=== PATIENT | female | born 1935 | race Caucasian/White ===

== ENCOUNTER → 2016-07-02 | Outpatient (CLI) | payer MEDICARE, OTHER ==
--- NOTE | 2016-07-02 16:47 | RAD ---
EXAM DESCRIPTION: Wrist,Left 3 Views CLINICAL HISTORY: 81 years Female, CLOSED FX OF DISTAL END OF RADIUS COMPARISON: None. FINDINGS: 3 views of the left wrist were obtained. There is a slightly displaced distal left radial fracture with intra-articular extension. There is a non or minimally splays the ulnar styloid fracture. Carpal bones are intact. Vascular calcifications are noted. There is joint space narrowing and productive change involving multiple metacarpophalangeal joints, worse at the second MCP joint. There is subluxation of the third PIP joint, questionable acuity. Bony erosions at several locations suggest the possibility of psoriatic arthritis. IMPRESSION: Minimally displaced distal radial and ulnar styloid fractures as detailed above. Advanced polyarticular arthritis with bony erosion suggesting the possibility of psoriatic arthritis. Subluxation of the third PIP joint, probably not acute. Electronically signed by: Frank Duran MD 07/02/2016 4:46 PM CDT
== END | disposition home or self-care (01) ==
LOC: RAD 08:38
PROVIDERS: ATTEND Orthopaedic Surgery
DX: S52.502D Unspecified fracture of the lower end of left radius, subsequent encounter for closed fracture with routine healing (principal); X58.XXXA Exposure to other specified factors, initial encounter

== ENCOUNTER → 2016-07-26 | Outpatient (CLI) | payer MEDICARE, OTHER ==
--- NOTE | 2016-07-27 07:50 | RAD ---
EXAM DESCRIPTION: Wrist,Left 3 Views CLINICAL HISTORY: 81 years Female, CLOSED FX OF DISTAL END OF RADIUS COMPARISON: July 02, 2016 FINDINGS: Again seen is an impacted, slightly comminuted distal left radial fracture with intra-articular extension remains either non or partially united. There is a non or partially nonunited, nondisplaced ulnar styloid fracture, stable. Vascular calcifications are noted. Polyarticular arthritis in the left wrist and left hand appears stable. IMPRESSION: Non or partially united distal radial and ulnar styloid fractures, not significantly changed from July 02, 2016. Vascular calcifications and polyarticular arthritic changes. Electronically signed by: Frank Duran MD 07/27/2016 7:49 AM CDT Workstation: [facility]
== END | disposition home or self-care (01) ==
LOC: RAD 08:10
PROVIDERS: ATTEND Orthopaedic Surgery
DX: S52.502D Unspecified fracture of the lower end of left radius, subsequent encounter for closed fracture with routine healing (principal)

== ENCOUNTER → 2016-08-30 | Outpatient (CLI) | payer MEDICARE, OTHER ==
--- NOTE | 2016-08-31 07:33 | RAD ---
EXAM DESCRIPTION: Wrist,Left 3 Views CLINICAL HISTORY: CLOSED FX OF DISTAL END OF RADIUS COMPARISON: July 26, 2016 and jul 02 2016 IMPRESSION: 3 views of the left wrist again demonstrate a comminuted, intra-articular impacted fracture of the distal radius. There there is interval separation of the major fracture fragments compared to the prior exams. There remains dorsal angulation of the distal fracture fragments and dorsal displacement of fragments similar to previous exam. Mildly displaced ulnar styloid avulsion fracture is again seen. There does not appear to be significant periosteal reaction or bridging callus formation to suggest significant healing. Osseous structures are diffusely osteopenic. Mild separation of the scaphoid and lunate is seen. Moderate osteoarthritic changes of the first carpometacarpal joint are noted. Electronically signed by: Ankit Peoples MD 08/31/2016 7:32 AM CDT
== END ==
LOC: RAD 09:07
PROVIDERS: ATTEND Orthopaedic Surgery
DX: S52.502D Unspecified fracture of the lower end of left radius, subsequent encounter for closed fracture with routine healing (principal); M18.12 Unilateral primary osteoarthritis of first carpometacarpal joint, left hand

== ENCOUNTER → 2016-09-16 | Outpatient (CLI) | payer MEDICARE, OTHER ==
--- NOTE | 2016-09-17 16:47 | MRI ---
EXAM DESCRIPTION: Lumbar Spine w/o Contrast CLINICAL HISTORY: LOW BACK PAIN COMPARISON: July 12, 2013. Report is not available. TECHNIQUE: Multiplanar, multisequence MRI of the lumbar spine was performed without contrast. FINDINGS: GENERAL Remote compression fracture deformity of T12 is again seen with retropulsed fragment of the superior plate contributing to mild spinal canal stenosis. Disc desiccation seen throughout the more spine. Moderate to severe disc space narrowing with endplate irregularity is again seen from L3 through L5 with mild disc space narrowing at L1-2. Vacuum disc is seen at L1-2 and L3-L5. Conus medullaris terminates at T12-L1 and is unremarkable. The visualized intra-abdominal retroperitoneal structures show no acute findings. Mild curvature of the upper lumbar spine with convexity towards the left is seen. Fat signal fibrolipoma of the filum terminalis is seen in the posterior aspect of the thecal sac from L2 to the sacrum. T12-L1: Trace retrolisthesis of T12 on L1 with 4 to 5 mm broad-based disc bulge slightly more prominent than previous exam contributes to mild spinal canal stenosis. There is moderate right foraminal encroachment. L1-2 There is a 4 mm broad-based disc bulge. Moderate bilateral facet hypertrophic and degenerative changes with ligamentum flavum thickening is seen. There is mild spinal canal stenosis. The thecal sac measures 7 mm AP centrally. Moderate to severe left and moderate right foraminal encroachment is seen. L2-3 Mild diffuse disc space narrowing and 3 mm posterior circumferential ridging disc osteophyte complex. There is moderate bilateral facet hypertrophic and degenerative changes with ligamentum flavum thickening decreasing CSF signal from around the nerve roots in the thecal sac that measures 5 mm AP by 10 mm transverse. There is severe spinal canal stenosis with right lateral recess encroachment and moderate right greater than left foraminal encroachment similar to previous. L3-4 There is 5 mm anterolisthesis of L4 3 on L4 is severe bilateral facet hypertrophic and degenerative changes including ligamentum flavum thickening resulting in critical spinal canal stenosis. The thecal sac measures 3 mm AP with loss of CSF signal from around the nerve roots. Severe right greater than left foraminal encroachment is again seen. L4-5 Trace anterolisthesis of L4 on L5. Severe bilateral facet hypertrophic and degenerative changes are seen. There is critical spinal canal stenosis with loss of CSF signal from around the nerve roots in the thecal sac measuring 3 mm AP centrally. Severe left and mild right foraminal encroachment is seen. L5-S1 Mild posterior disc space narrowing and broad-based disc bulge with moderate bilateral facet hypertrophic and degenerative changes including ligamentum flavum thickening. There is moderate spinal canal stenosis with left greater than right lateral recess encroachment. Moderate to severe left foraminal encroachment is seen. IMPRESSION: Remote compression fracture deformity of T12 is again seen. No acute compression fracture deformity seen. Multilevel severe disc degenerative change and facet arthropathy from L1 through S1 is seen. There is multifactorial critical spinal canal stenosis at L3-4 and L4-5 severe spinal canal stenosis at L2-3. Multilevel moderate to severe foraminal encroachment stable from previous. Electronically signed by: Ankit Peoples MD 09/17/2016 4:45 PM CDT
== END ==
LOC: MRI 11:13
PROVIDERS: ATTEND Family Medicine
DX: M48.54XA Collapsed vertebra, not elsewhere classified, thoracic region, initial encounter for fracture (principal); M51.37 Other intervertebral disc degeneration, lumbosacral region

== ENCOUNTER 2016-10-11 05:37 | Day surgery (SDC) | payer MEDICARE, OTHER ==
[2016-10-11] MEDS: PROPARACAINE 0.5% OPHTH SOL 15 ML BTTL LEFT_EYE ONE ×3 (07:28→08:45)
[2016-10-11] MEDS: TOBRAMYCIN SULF 0.3 % OPHT SOL 1 DROP LEFT_EYE ONE ×2 (07:29→09:05)
[2016-10-11] MEDS ORDERED: TROP 1%/CYCLOPEN 1%/PHENYL 2% DROPS OPHTH ONE ×3 (07:30→07:40)
[2016-10-11] MEDS ORDERED: MIDAZOLAM INJ 5 MG/5 ML VIAL ONE (08:39)
[2016-10-11] MEDS ORDERED: LIDOCAINE 1% PF 2 ML AMP INJ ONE (08:50)
[2016-10-11] MEDS ORDERED: BRIMONIDINE 0.2% OPHTH DROPS LEFT_EYE ONE (09:05)
[2016-10-11] MEDS ORDERED: DEXAMETHASONE 0.1% OPHTH SOL 1 DROP LEFT_EYE ONE (09:05)
[2016-10-11 14:36] VITALS: O2SAT 95
[2016-10-11 15:10] VITALS: BP 192/73; TEMP 97.2
== END 2016-10-11 10:10 | disposition home or self-care (01) ==
LOC: AMB 05:37
PROVIDERS: ATTEND Ophthalmology
DX: H25.12 Age-related nuclear cataract, left eye (principal)
CPT/HCPCS: 66984; J2250

== ENCOUNTER → 2016-11-10 | Outpatient (CLI) | payer MEDICARE, OTHER | LOC: GMAB 10:45 | PROVIDERS: ATTEND Family Medicine | DX: E03.9 Hypothyroidism, unspecified (principal); I10 Essential (primary) hypertension ==

== ENCOUNTER → 2017-01-28 | Outpatient (CLI) | payer MEDICARE, OTHER ==
--- NOTE | 2017-01-29 17:52 | MRI ---
EXAM DESCRIPTION: Lumbar Spine w/o Contrast CLINICAL HISTORY: FALL INJURY COMPARISON: 09/16/2016. TECHNIQUE: Multiplanar multisequence MR imaging of the lumbar spine was performed without contrast FINDINGS: Since the prior exam, there is new moderate height loss of T11, with internal increased T2 signal consistent with acute compression fracture. There is no retropulsion of bone fragments into the spinal canal at this level.There is increased STIR signal in the anterior soft tissues and lateral paraspinal soft tissues at the T10 and T11 levels. No other significant change is seen. Extensive degenerative changes are again seen and spondylolisthesis at multiple levels is again seen. These findings appear unchanged. Degree of neural foraminal stenosis previously seen appears unchanged. For purposes of this exam, it is assumed that there are five nonrib-bearing lumbar vertebral bodies. There is no other evidence of acute fracture. The vertebral bodies are otherwise unchanged in configuration and signal. The conus medullaris and filum terminale and cauda equina appear unremarkable. IMPRESSION: New T11 compression fracture with edema of the surrounding soft tissues. Electronically signed by: Dameon Pierson 01/29/2017 5:51 PM [facility]
== END ==
LOC: MRI 11:01
PROVIDERS: ATTEND Physical Medicine & Rehabilitation
DX: S22.080A Wedge compression fracture of T11-T12 vertebra, initial encounter for closed fracture (principal); M81.0 Age-related osteoporosis without current pathological fracture

== ENCOUNTER → 2017-11-23 | Outpatient (CLI) | payer MEDICARE, OTHER | LOC: GMAE 12:02 | PROVIDERS: ATTEND Family Medicine | DX: D50.9 Iron deficiency anemia, unspecified (principal); D53.9 Nutritional anemia, unspecified; E53.8 Deficiency of other specified B group vitamins; D72.821 Monocytosis (symptomatic); E03.9 Hypothyroidism, unspecified ==

== ENCOUNTER → 2017-12-06 | Outpatient (CLI) | payer MEDICARE, OTHER | LOC: GMAE 14:37 | PROVIDERS: ATTEND Family Medicine | DX: E53.8 Deficiency of other specified B group vitamins (principal) ==

== ENCOUNTER → 2018-01-11 | Outpatient (CLI) | payer MEDICARE, OTHER | LOC: GMAE 14:14 | PROVIDERS: ATTEND Family Medicine | DX: E53.8 Deficiency of other specified B group vitamins (principal); D50.9 Iron deficiency anemia, unspecified ==

== ENCOUNTER → 2018-12-06 | Outpatient (CLI) | payer MEDICARE, OTHER | LOC: GMAE 12:36 | PROVIDERS: ATTEND Family Medicine | DX: E03.9 Hypothyroidism, unspecified (principal); I10 Essential (primary) hypertension; E78.00 Pure hypercholesterolemia, unspecified ==

== ENCOUNTER → 2019-06-06 | Outpatient (CLI) | payer MEDICARE, OTHER | LOC: GMAE 11:34 | PROVIDERS: ATTEND Family Medicine | DX: E03.9 Hypothyroidism, unspecified (principal) ==

== ENCOUNTER → 2019-12-19 | Outpatient (CLI) | payer MEDICARE, OTHER | LOC: GMAE 14:33 | PROVIDERS: ATTEND Family Medicine | DX: D51.3 Other dietary vitamin B12 deficiency anemia (principal); E03.9 Hypothyroidism, unspecified; I10 Essential (primary) hypertension; E78.00 Pure hypercholesterolemia, unspecified ==

== ENCOUNTER 2020-01-15 16:59 | Emergency (ER) | payer MEDICARE, OTHER ==
[2020-01-15 18:11] VITALS: TEMP 97.9
--- NOTE | 2020-01-15 19:49 | RAD ---
EXAM DESCRIPTION: XR Chest,1 View CLINICAL HISTORY: COVID, WEAKNESS, FATIGUED TECHNIQUE: Single frontal view of the chest is submitted. COMPARISON: 10/06/2015 FINDINGS: Heart: The cardiothoracic silhouette is accentuated by portable technique. Lungs: Patchy bilateral mid and lower lung zone opacities. Mediastinum: Thoracic aortic atherosclerosis. Moderate hiatal hernia, mildly increased in size. Pleura: No appreciable effusion. No pneumothorax. Bones: Multilevel spondylosis. Reverse shoulder arthroplasty bilaterally, new on the left. Upper abdomen: Surgical clips project over the right upper quadrant. IMPRESSION: Patchy infiltrates bilaterally. 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
--- NOTE | 2020-01-15 21:31 | ED.PDOC ---
History of Present Illness - General Chief Complaint: Respiratory Problem Stated Complaint: COVID + Time Seen by Provider: 01/15/20 19:11 Source: patient, RN/MD Exam Limitations: no limitations - History of Present Illness Initial Comments: 7 D OF "HEAD COLD". POS COVID AT OUTSIDE LAB. NO SOB. NO COUGH. JUST TIRED, WEAK, FEELS RUN DOWN. PRESENT IN ER, WHO IS BEING SEEN FOR POS COVID WELL. DR. STOKES CALLED ME AND SENT THEM OVER. HE REQUESTS W/U AND ADMISSION. Timing/Duration: constant Severity: moderate Improving Factors: nothing Worsening Factors: nothing Associated Symptoms: weakness Allergies/Adverse Reactions: Allergies NO KNOWN ALLERGY Allergy (Verified 01/15/20 18:13) Home Medications: Ambulatory Orders Furosemide [Lasix] 20 mg PO DAILY 01/11/14 Levothyroxine Sodium [Synthroid] 0.125 mg PO DAILY 01/11/14 Losartan Potassium & Hydrochlo [Losartan Potassium/Hydroc 100-12.5 mg] 1 tab PO DAILY 01/11/14 Meloxicam 7.5 mg PO DAILY 01/11/14 Ondansetron Tab [Zofran Tab] 4 mg PO BID PRN #8 tab 01/11/14 Potassium Chloride [Micro-K] 10 meq PO DAILY 01/11/14 amLODIPine BESYLATE [Norvasc] 5 mg PO DAILY 01/11/14 Bacitracin Oint Ud Packet 0.9 gm TOP TID #21 pckt 03/09/14 Lidocaine 2% Gel [Xylocaine 2% GEL] 1 applic TOP TID PRN #1 tube 03/09/14 Ondansetron Odt [Zofran ODT] 8 mg PO Q6HR PRN #20 tab 03/09/14 Review of Systems - Review of Systems Constitutional: States: weakness. Denies: chills, fever EENTM: Denies: ear pain, nose congestion, throat pain Respiratory: Denies: cough, short of breath Cardiology: Denies: chest pain, palpitations Gastrointestinal/Abdominal: States: no symptoms reported Genitourinary: States: no symptoms reported Musculoskeletal: States: no symptoms reported Skin: States: no symptoms reported Neurological: States: no symptoms reported Endocrine: States: no symptoms reported Hematologic/Lymphatic: States: no symptoms reported All other Systems: Reviewed and Negative Past Medical History (General) - Patient Medical History Hx Seizures: No Hx Stroke: No Hx Dementia: No Hx Asthma: No Hx of COPD: No Hx Cardiac Disorders: No Hx Congestive Heart Failure: No Hx Pacemaker: No Hx Hypertension: Yes Hx Thyroid Disease: Yes Hx Diabetes: No Hx Gastroesophageal Reflux: No Hx Renal Disease: No Hx Cancer: No Hx of HIV: No Hx Hepatitis C: No Hx MRSA: No Surgical History: appendectomy, cholecystectomy - Vaccination History Hx Influenza Vaccination: Yes Hx Pneumococcal Vaccination: Yes - Social History Hx Tobacco Use: No Hx Alcohol Use: No Hx Substance Use: No Hx Substance Use Treatment: No Hx Depression: No - Activities of Daily Living Hospice Agency (if applicable):: None - Female History Patient is a Female of Child Bearing Age (10 -59 yrs old): No Patient : No Family Medical History - Family History Mother Family History: Unknown Physical Exam - Physical Exam General Appearance: Alert, Other - FATIGUED APPEARANCE. Eye Exam: bilateral normal Ears, Nose, Throat: hearing grossly normal, normal ENT inspection Neck: non-tender, supple Respiratory: lungs clear, normal breath sounds, no respiratory distress, no accessory muscle use Cardiovascular/Chest: regular rate, rhythm, no murmur Peripheral Pulses: radial,right: 1+, radial,left: 1+ Gastrointestinal/Abdominal: non tender, soft Rectal Exam: deferred Back Exam: no CVA tenderness, no vertebral tenderness Extremity: normal range of motion, non-tender, no pedal edema, no calf tendernes s Neurologic: stock hanger II-XII nml as tested, no motor/sensory deficits, alert, normal mood/affect, oriented x 3 Skin Exam: normal color, warm/dry Lymphatic: no adenopathy Progress - Results/Orders Results/Orders: COVID POS PER OUTSIDE LAB. ELEVATED LABS C/W COVID - LDH, D-DIMER, CRP. (SEE SOME OF THE LAB OBTAINED OUTPT BY DR. STOKES TODAY.) WNL: FIBRINOGEN, MAG, CPK, PTT, TROP. CXR BL PATCHY INFILTRATES. PER DR. STOKES'S RECOMMENDATION, I WAS ADMITTING OBSERVATION FOR COVID PNE, WEAKNESS, FATIGUE, HIGH FALL RISK. 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 PT'S REFUSED AD M[facility]ION FOR THEM SINCE THERE IS NOT A DOUBLE PERSON ROOM. ( HAS SEVERE DEMENTIA, SO SHE DECIDES FOR THEM.) JOHNATHAN AND I BOTH TALKED WITH THE PTS AND URGED AND RECOMMENDED THEY BE ADMITTED AND EXPLAINED THE ROOMS WOULD BE ADJACENT TO EACH OTHER. SHE REFUSED ON THEIR BEHALF. WE WARNED OF RISKS OF FALLS AND INJURY, AND RAPIDLY WORSENING RESPIRATORY STATUS. SHE STILL REFUSED ADMISSION. THUS WE DISCHARGED. I ASKED THEM TO F/U WITH DR. STOKES TOMORROW TO ENSURE THEY ARE NOT DETERIORATING. Departure - Departure Clinical Impression: COVID-19 virus detected, Weakness, Elevated d-dimer, Pneumonia due to COVID-19 virus Fatigue Qualifiers: Fatigue type: other Qualified Code(s): R53.83 - Other fatigue Disposition: Discharge to Home or Self Care Condition: Good Departure Forms: ED Discharge - Pt. Copy, Patient Portal Self Enrollment Instructions: Coronavirus Disease 2019 (COVID-19) Diet: resume usual diet Activity: other - Get plenty of rest. Referrals: WILIAM STOKES MD [Primary Care Provider] - 1-5 Days Home Medications: Ambulatory Orders Furosemide [Lasix] 20 mg PO DAILY 01/11/14 Levothyroxine Sodium [Synthroid] 0.125 mg PO DAILY 01/11/14 Losartan Potassium & Hydrochlo [Losartan Potassium/Hydroc 100-12.5 mg] 1 tab PO DAILY 01/11/14 Meloxicam 7.5 mg PO DAILY 01/11/14 Ondansetron Tab [Zofran Tab] 4 mg PO BID PRN #8 tab 01/11/14 Potassium Chloride [Micro-K] 10 meq PO DAILY 01/11/14 amLODIPine BESYLATE [Norvasc] 5 mg PO DAILY 01/11/14 Bacitracin Oint Ud Packet 0.9 gm TOP TID #21 pckt 03/09/14 Lidocaine 2% Gel [Xylocaine 2% GEL] 1 applic TOP TID PRN #1 tube 03/09/14 Ondansetron Odt [Zofran ODT] 8 mg PO Q6HR PRN #20 tab 03/09/14 Additional Instructions: Drink plenty of fluids. Please return to the ER immediately if you develop troubles breathing or other worsening symptoms.
[2020-01-15 21:42] VITALS: BP 138/62; O2SAT 94
== END 2020-01-15 21:42 | disposition home or self-care (01) ==
LOC: ER 16:59
DX: U07.1 COVID-19 (principal); J12.89 Other viral pneumonia; R79.89 Other specified abnormal findings of blood chemistry; I10 Essential (primary) hypertension; E07.9 Disorder of thyroid, unspecified; Z79.899 Other long term (current) drug therapy

== ENCOUNTER 2020-01-16 10:38 | Observation (INO) | payer MEDICARE, OTHER ==
[2020-01-16] MEDS ORDERED: DEXAMETHASONE INJ 10 MG/ML VIAL IV ONE (11:07)
[2020-01-16] MEDS ORDERED: AZITHROMYCIN IV 500 MG in SODIUM CHLORIDE 0.9% 250ML 250 ML IVPB ONE (11:26)
--- NOTE | 2020-01-16 11:40 | RAD ---
EXAM DESCRIPTION: Chest,1 View CLINICAL HISTORY: 84 years Female, covid, hypoxia, bradycardia COMPARISON: January 15, 2020 TECHNIQUE: AP portable chest. FINDINGS: Single view of the chest demonstrates improved inspiration from previous day's study. Cardiomegaly persists with tortuous aorta and normal vascularity. Patchy infiltrative changes in the lung bases have improved from the previous day's study with some residual haziness and stranding at the right lung base and in the left infrahilar region. Either resolving atelectasis or improving infiltrate suspected. Chest wall is intact. Erosion or resection of the distal clavicles bilaterally suspected. Bilateral reverse shoulder prostheses again noted. IMPRESSION: Improved appearance of the lung bases with slight haziness persisting in the right lung base and left infrahilar region in a retrocardiac location. 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
[2020-01-16] MEDS ORDERED: REMDESIVIR 200 MG in SODIUM CHLORIDE 0.9% 250ML 250 ML IVPB ONE (11:44)
--- NOTE | 2020-01-16 12:52 | ED.PDOC ---
History of Present Illness - General Chief Complaint: General Stated Complaint: +COVID,dizzy,nausea Time Seen by Provider: 01/16/20 10:51 Source: patient Exam Limitations: no limitations - History of Present Illness Initial Comments: The patient is an 84-year-old female presenting with her secondary to coronavirus pneumonia. The emergency room last night and deferred admission at that point. Since that time the patient has been feeling worse with increased dizziness and headache. Increased fatigue as well with exertion. No chest pain. She does have a cough. Oxygen saturations here range from 87 to 94% on room air. She does desaturate more when she sleeps. The patient does have a significant sinus bradycardia but apparently that has been present for at least the last 4 years. The patient is not hypotensive so there should be no issue with poor perfusion. The patient has reported some mild nausea. She does report a productive cough. No chest pain. Timing/Duration: other - Around 4 days Severity: moderate Improving Factors: nothing Worsening Factors: movement Associated Symptoms: cough, headaches, loss of appetite, malaise, shortness of breath, weakness Allergies/Adverse Reactions: Allergies NO KNOWN ALLERGY Allergy (Verified 01/15/20 18:13) Home Medications: Ambulatory Orders Furosemide [Lasix] 20 mg PO DAILY 01/11/14 Levothyroxine Sodium [Synthroid] 0.125 mg PO DAILY 01/11/14 Losartan Potassium & Hydrochlo [Losartan Potassium/Hydroc 100-12.5 mg] 1 tab PO DAILY 01/11/14 Meloxicam 7.5 mg PO DAILY 01/11/14 Ondansetron Tab [Zofran Tab] 4 mg PO BID PRN #8 tab 01/11/14 Potassium Chloride [Micro-K] 10 meq PO DAILY 01/11/14 amLODIPine BESYLATE [Norvasc] 5 mg PO DAILY 01/11/14 Bacitracin Oint Ud Packet 0.9 gm TOP TID #21 pckt 03/09/14 Lidocaine 2% Gel [Xylocaine 2% GEL] 1 applic TOP TID PRN #1 tube 03/09/14 Ondansetron Odt [Zofran ODT] 8 mg PO Q6HR PRN #20 tab 03/09/14 Review of Systems - Review of Systems Constitutional: States: malaise EENTM: States: no symptoms reported Respiratory: States: cough, short of breath Cardiology: States: no symptoms reported Gastrointestinal/Abdominal: States: see HPI Genitourinary: States: no symptoms reported Musculoskeletal: States: no symptoms reported Skin: States: no symptoms reported Neurological: States: headache Endocrine: States: no symptoms reported All other Systems: No Change from Baseline Past Medical History (General) - Patient Medical History Hx Seizures: No Hx Stroke: No Hx Dementia: No Hx Asthma: No Hx of COPD: No Hx Cardiac Disorders: No Hx Congestive Heart Failure: No Hx Pacemaker: No Hx Hypertension: Yes Hx Thyroid Disease: Yes Hx Diabetes: No Hx Gastroesophageal Reflux: No Hx Renal Disease: No Hx Cancer: No Hx of HIV: No Hx Hepatitis C: No Hx MRSA: No - Vaccination History Hx Influenza Vaccination: Yes Hx Pneumococcal Vaccination: Yes - Social History Hx Tobacco Use: Yes Hx Alcohol Use: No Hx Substance Use: No Hx Substance Use Treatment: No Hx Depression: No - Female History Patient : No Family Medical History - Family History Mother Family History: Unknown Physical Exam - Physical Exam General Appearance: Alert, Frail, Ill Appearing Eye Exam: bilateral normal Ears, Nose, Throat: hearing grossly normal, normal pharynx Neck: full range of motion, supple Respiratory: no respiratory distress, no accessory muscle use, rhonchi - Scattered Cardiovascular/Chest: normal peripheral pulses, no edema, bradycardia - Sinus Peripheral Pulses: radial,right: 2+, radial,left: 2+ Gastrointestinal/Abdominal: non tender, soft Rectal Exam: deferred Back Exam: no CVA tenderness, no vertebral tenderness Extremity: normal range of motion, non-tender, normal inspection, no pedal edema, normal capillary refill 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 The patient does have hypoxia as well as numerous other symptoms from this. The patient is being started on dexamethasone, azithromycin and remdesivir. She is also requiring some oxygen supplementation at this time. Admitting for continued care. 01/16/20 12:54 john calderon [id number] - Results/Orders Results/Orders: Chest x-ray is consistent with coronavirus pneumonia. EKG shows sinus bradycardia at 46 bpm. There is a chronic left bundle branch block with left axis deviation manifesting as inferior Q waves and poor R wave progression anterior leads. Normal QT interval. This is consistent with previous EKGs. Laboratory Tests 01/16/20 01/16/20 01/16/20 11:18 11:18 11:18 WBC 5.6 RBC 4.18 L Hgb 11.3 L Hct 33.8 L MCV 81.0 MCH 27.0 MCHC 33.4 RDW 16.1 H Plt Count 203 MPV 9.7 Absolute Neuts (auto) 4.30 Absolute Lymphs (auto) 0.60 L Absolute Monos (auto) 0.70 Absolute Eos (auto) 0.00 Absolute Basos (auto) 0.00 Neutrophils % 76.0 Lymphocytes % 11.0 L Monocytes % 12.6 H Eosinophils % 0.1 L Basophils % 0.3 PT 9.8 INR < 1.00 PTT (SP) 30.1 Fibrinogen 337 D-Dimer, Quantitative 589.0 H Sodium 130 L Potassium 4.1 Chloride 96 L Carbon Dioxide 24 Anion Gap 14.1 BUN 13 Creatinine 1.14 BUN/Creatinine Ratio 11.4 Random Glucose 122 H Serum Osmolality 262.2 L Lactic Acid Calcium 8.2 L Magnesium 2.1 Total Bilirubin 0.6 AST 40 ALT 24 Alkaline Phosphatase 63 LD Total 199 H Creatine Kinase 97 CK-MB (CK-2) 3.6 Troponin I 0.02 C-Reactive Protein 2.0 H D B-Natriuretic Peptide 103.0 H Serum Total Protein 6.3 L Albumin 3.6 Globulin Not Reportable Albumin/Globulin Ratio 1.3 Amylase 42 Lipase 44 TSH 0.49 01/16/20 11:18 WBC RBC Hgb Hct MCV MCH MCHC RDW Plt Count MPV Absolute Neuts (auto) Absolute Lymphs (auto) Absolute Monos (auto) Absolute Eos (auto) Absolute Basos (auto) Neutrophils % Lymphocytes % Monocytes % Eosinophils % Basophils % PT INR PTT (SP) Fibrinogen D-Dimer, Quantitative Sodium Potassium Chloride Carbon Dioxide Anion Gap BUN Creatinine BUN/Creatinine Ratio Random Glucose Serum Osmolality Lactic Acid 1.1 Calcium Magnesium Total Bilirubin AST ALT Alkaline Phosphatase LD Total Creatine Kinase CK-MB (CK-2) Troponin I C-Reactive Protein B-Natriuretic Peptide Serum Total Protein Albumin Globulin Albumin/Globulin Ratio Amylase Lipase TSH Departure - Departure Clinical Impression: Pneumonia due to COVID-19 virus Disposition: Admit Patient Departure Forms: ED Discharge - Pt. Copy, Patient Portal Self Enrollment Referrals: WILIAM STOKES MD [Primary Care Provider] - 1-2 Weeks Home Medications: Ambulatory Orders Furosemide [Lasix] 20 mg PO DAILY 01/11/14 Levothyroxine Sodium [Synthroid] 0.125 mg PO DAILY 01/11/14 Losartan Potassium & Hydrochlo [Losartan Potassium/Hydroc 100-12.5 mg] 1 tab PO DAILY 01/11/14 Meloxicam 7.5 mg PO DAILY 01/11/14 Ondansetron Tab [Zofran Tab] 4 mg PO BID PRN #8 tab 01/11/14 Potassium Chloride [Micro-K] 10 meq PO DAILY 01/11/14 amLODIPine BESYLATE [Norvasc] 5 mg PO DAILY 01/11/14 Bacitracin Oint Ud Packet 0.9 gm TOP TID #21 pckt 03/09/14 Lidocaine 2% Gel [Xylocaine 2% GEL] 1 applic TOP TID PRN #1 tube 03/09/14 Ondansetron Odt [Zofran ODT] 8 mg PO Q6HR PRN #20 tab 03/09/14 Decision To Admit - Decistion To Admit Decision to Admit Reason: Medical Nature Decision to Admit Date: 01/16/20 Decision to Admit Time: 12:54
--- NOTE | 2020-01-16 13:03 | HP ---
SUPERVISING PHYSICIAN: Kulwinder Peña MD CHIEF COMPLAINT: Shortness of breath. HISTORY OF PRESENT ILLNESS: This is an 84-year-old female who was diagnosed with COVID-19 approximately 4 days ago. She actually came to the Emergency Room last night for feeling worse and mild shortness of breath. When she came to the ER, her O2 saturations were around 92-94%. She was offered admission at that time, but did not want to be admitted due to not being able to share a room with her . She had concerns over his dementia and basically refused to be admitted unless they were in the same room. At that time, a double room was not available, so she declined admission. Remdesivir and dexamethasone were offered in the Emergency Room, but apparently she left prior to getting those administered. They went home and started to feel worse and reported O2 saturations in the 80s. Therefore, they came back to the Emergency Room. They were seen in the ER again. CBC is pretty much unremarkable. D-dimer 589. Chemistry with CRP 2.0, sodium 130, otherwise unremarkable. Chest x-ray was repeated as well and showed a little bit of improvement of the lung bases, but still with some patchy infiltrates noted. The hospital has created a double room and, therefore, she has agreed to admission. At time of examination, the patient is alert, resting well, no distress. She has been placed on 2 liters via nasal cannula due to the saturation of 87% on room air in the ER. Currently, she is oxygenating well with O2 saturation 98%. PAST MEDICAL HISTORY: 1. Hyperlipidemia. 2. Hypertension. 3. Hypothyroidism. 4. Osteoarthritis. PAST SURGICAL HISTORY: 1. Appendectomy. 2. Colonoscopy. 3. EGD. MEDICATIONS: Please see medication reconciliation list once verified in the computer. FAMILY HISTORY: Reviewed and noncontributory to the patient's current illness. SOCIAL HISTORY: No drinking, no smoking, no illicit drugs. REVIEW OF SYSTEMS: CONSTITUTIONAL: Positive for fever, chills and malaise. HEENT: Positive for nasal drainage. No sore throat. RESPIRATORY: Positive for shortness of breath and cough. CARDIOVASCULAR: No chest pain, palpitations or peripheral edema. GASTROINTESTINAL: No nausea, vomiting, diarrhea, constipation or abdominal pain. GENITOURINARY: No dysuria, frequency or flank pain. ENDOCRINE: No polydipsia, polyuria or polyphagia. No heat or cold intolerance. MUSCULOSKELETAL: No joint pain, joint swelling or muscle cramps. NEUROLOGIC: No syncope, paresthesias or seizures. PHYSICAL EXAMINATION: VITAL SIGNS: Blood pressure 153/74, heart rate 48, respiratory rate 16, temperature 97.3, oxygen saturation 98% on 2 liters via nasal cannula. GENERAL: Ms. Davis is an 84-year-old female who is in no active distress currently. NEUROLOGIC: The patient is alert. LUNGS: Diminished, but otherwise clear to auscultation bilaterally. CARDIOVASCULAR: Regular rate and rhythm. Normal S1, S2. ABDOMEN: Soft. Positive bowel sounds. GENITOURINARY: Deferred. EXTREMITIES: Lower extremities with no edema. LABORATORY: Labs and films are as discussed in history of present illness. IMPRESSION: 1. COVID pneumonitis. 2. Bradycardia. 3. Hypertension. 4. Hypothyroidism. 5. Hyponatremia. PLAN: The patient will be admitted to the hospital at this time on standard COVID-19 care including Remdesivir, dexamethasone as well as empiric antibiotics. Scheduled bronchodilator as well as Mucinex have also been ordered. Aggressive pulmonary hygiene including incentive spirometry has been ordered as well. I will resume her home medications once they are verified in the computer as well. #[id number] [facility]
[2020-01-16] MEDS: ALBUTEROL INHALER 64 PUFF/8GM INH SCH ×2 (14:30→22:50)
[2020-01-16] MEDS ORDERED: SODIUM CHLORIDE 0.9% (FLUSH) 10 ML SYG IV PRN (14:50)
[2020-01-16] MEDS ORDERED: IV SET AND CAP CHANGE INJ INJ SCH (15:00)
[2020-01-16] MEDS: cefTRIAXone SODIUM 1 GM in SODIUM CHL 0.9% 50ML MIN-BAG+ 50 ML IVPB SCH (15:21)
[2020-01-16] MEDS ORDERED: guaiFENesin ER TAB 600 MG TAB ONE (19:16)
[2020-01-16] MEDS: SODIUM CHLORIDE 0.9% 1000ML 1,000 ML IVS PRN (19:28)
[2020-01-16] MEDS: guaiFENesin ER TAB 600 MG TAB PO SCH (20:35)
[2020-01-17] MEDS: traMADol HCL 50 MG TAB PO PRN ×2 (05:52→14:19)
[2020-01-17] MEDS ORDERED: DEXAMETHASONE INJ 10 MG/ML VIAL ONE (07:06)
--- NOTE | 2020-01-17 07:57 | RAD ---
EXAM: XR Chest, 1 View CLINICAL HISTORY: The patient is 84 years old and is Female; COVID TECHNIQUE: Frontal view of the chest. COMPARISON: Chest x-ray 01/16/2020. FINDINGS: Lungs: Improved/resolving airspace disease in the lung bases. Pleural space: Unremarkable. No pneumothorax. Heart: Unremarkable. No cardiomegaly. Mediastinum: Unremarkable. Bones/joints: Bilateral shoulder arthroplasty. IMPRESSION: Improved/resolving airspace disease in the lung bases. Electronically signed by: Armand Gale MD 01/17/2020 7:55 AM [facility]
[2020-01-17] MEDS ORDERED: LEVOTHYROXINE SODIUM 0.025 MG TAB ONE (08:52)
[2020-01-17] MEDS ORDERED: LEVOTHYROXINE SODIUM 0.1 MG TAB ONE (08:52)
[2020-01-17] MEDS: ALBUTEROL INHALER 64 PUFF/8GM INH SCH ×4 (08:55→21:00)
[2020-01-17] MEDS: REMDESIVIR 100 MG in SODIUM CHLORIDE 0.9% 250ML 250 ML IVPB SCH (08:58)
[2020-01-17] MEDS: amLODIPine BESYLATE 5 MG TAB PO SCH (08:58)
[2020-01-17] MEDS: MELOXICAM 7.5 MG TAB PO SCH (08:59)
[2020-01-17] MEDS ORDERED: DEXAMETHASONE INJ 4 MG/ML VIAL IV SCH (09:00)
[2020-01-17] MEDS ORDERED: LEVOTHYROXINE SODIUM 0.125 MG PO SCH (09:00)
[2020-01-17] MEDS: guaiFENesin ER TAB 600 MG TAB PO SCH ×2 (09:07→20:15)
[2020-01-17] MEDS: LEVOTHYROXINE SODIUM 0.1 MG, LEVOTHYROXINE SODIUM 0.025 MG PO SCH ×2 (11:27)
[2020-01-17] MEDS: LOSARTAN POTASSIUM 100 MG TAB PO SCH (11:27)
[2020-01-17] MEDS: hydroCHLOROthiazide 12.5 MG CAP PO SCH (11:28)
[2020-01-17] MEDS ORDERED: AZITHROMYCIN IV 500 MG VIAL IVPB ONE (13:33)
[2020-01-17] MEDS ORDERED: SODIUM CHLORIDE 0.9% 250ML 250 ML ONE (13:34)
[2020-01-17] MEDS: SODIUM CHLORIDE 0.9% 1000ML 1,000 ML IVS PRN (14:16)
[2020-01-17] MEDS: AZITHROMYCIN IV 500 MG in SODIUM CHLORIDE 0.9% 250ML 250 ML IVPB SCH (14:24)
[2020-01-17] MEDS: cefTRIAXone SODIUM 1 GM in SODIUM CHL 0.9% 50ML MIN-BAG+ 50 ML IVPB SCH (17:55)
[2020-01-18] MEDS: LEVOTHYROXINE SODIUM 0.1 MG, LEVOTHYROXINE SODIUM 0.025 MG PO SCH ×2 (05:49)
[2020-01-18] MEDS ORDERED: DEXAMETHASONE INJ 10 MG/ML VIAL ONE (07:06)
[2020-01-18] MEDS: LOSARTAN POTASSIUM 100 MG TAB PO SCH (08:15)
[2020-01-18] MEDS: MELOXICAM 7.5 MG TAB PO SCH (08:15)
[2020-01-18] MEDS: REMDESIVIR 100 MG in SODIUM CHLORIDE 0.9% 250ML 250 ML IVPB SCH (08:16)
[2020-01-18] MEDS: guaiFENesin ER TAB 600 MG TAB PO SCH (08:16)
[2020-01-18] MEDS: hydroCHLOROthiazide 12.5 MG CAP PO SCH (08:16)
[2020-01-18] MEDS: amLODIPine BESYLATE 5 MG TAB PO SCH (08:16)
--- NOTE | 2020-01-18 08:29 | PN ---
SUPERVISING PHYSICIAN: Kulwinder Peña MD DATE: 01/17/20 SUBJECTIVE: The patient is sitting up in bed. She is still requiring a small amount of oxygen and we discussed that we would try to get her off of that. Otherwise, she will need to go home on home 02. She has decided she will have [facility] since her is on that service. She has no complaints of chest pain, shortness of breath, nausea or vomiting. OBJECTIVE: VITAL SIGNS: Temperature 98.3, heart rate 55, blood pressure 167/65, respiratory rate 19, oxygen saturation 92% on one liter nasal cannula. RESPIRATORY: Essentially clear to auscultation bilateral tubal ligation. CARDIAC: Regular rate and rhythm. NEUROLOGIC: She is awake, alert, and oriented x3. LABORATORY: WBCs 3,200, hemoglobin 10.7, hematocrit 32.2. D-dimer 353. Electrolytes are basically within normal limits except her calcium is low at 8.3. C-reactive protein 2.9. Preliminary blood cultures no growth at 24 hours. Chest x-ray shows improved resolving airspace disease in the lung bases. IMPRESSION: 1. COVID pneumonitis. 2. Bradycardia. 3. Hypertension. 4. Hypothyroidism. 5. Hyponatremia, improving. PLAN: We will continue to titrate off her oxygen as tolerated. Hopefully, she can discharge home tomorrow with [facility]. Routine lab will be ordered for tomorrow morning as well as a chest x-ray. I believe she can be discharged home tomorrow. #[id number] [facility]
[2020-01-18] MEDS ORDERED: DEXAMETHASONE INJ 10 MG/ML VIAL IV SCH (09:00)
[2020-01-18] MEDS: ALBUTEROL INHALER 64 PUFF/8GM INH SCH ×2 (09:04→15:16)
[2020-01-18] MEDS ORDERED: ENOXAPARIN SODIUM 40 MG/0.4 ML SYG SUBCU SCH (12:30)
[2020-01-18] MEDS: AZITHROMYCIN IV 500 MG in SODIUM CHLORIDE 0.9% 250ML 250 ML IVPB SCH (14:23)
[2020-01-18 15:09] VITALS: BP 147/61; TEMP 98; O2SAT 97
[2020-01-18] MEDS ORDERED: CALCIUM CARBONATE (ANTACID) 500 MG CHEWABLE TAB PO PRN (15:15)
--- NOTE | 2020-01-19 16:01 | DS ---
SUPERVISING PHYSICIAN: Kulwinder Peña MD DISCHARGE DIAGNOSES: 1. COVID pneumonitis. 2. Bradycardia. 3. Hypertension. 4. Hypothyroidism. 5. Hyponatremia that is improving. HISTORY OF PRESENT ILLNESS: This is an 84-year-old female who was diagnosed with COVID-19 approximately 4 days prior to admission. She actually came to the Emergency Room last night before she was admitted due to feeling poorly with mild shortness of breath. Her O2 saturations were around 92-94% initially. She was offered admission but did not want to be admitted due to not being able to share a room with her as he has severe dementia and refused to be admitted unless they were in the same room. At that time, a double room was not available so she declined admission. She did not receive Remdesivir and dexamethasone as offered in the Emergency Room. They went home and continued to feel worse and they came back to the Emergency Room and her oxygen saturation was in the mid 80s. D-dimer was elevated at 589 with CRP 2.0, sodium 130, otherwise unremarkable. Chest x-ray was repeated and showed a bit of improvement in the lung bases, but still patchy infiltrates noted. She was admitted with her and they were placed in a double room. Her oxygen saturations on 2 liters nasal cannula were up to the low 90s as they were 87% on room air in the Emergency Room. HOSPITAL COURSE: The patient was placed in observation and given the standard Covid medications including Remdesivir, dexamethasone and empiric antibiotics. She was given a bronchodilator as well as Mucinex. Her home medications were restarted. She was placed on Lovenox, she had aggressive pulmonary hygiene. She continued her lab and her clinical status continued to improve over the next 24 hours, although she was still requiring a small amount of the oxygen. We were unable to discontinue her oxygen without her having exertional hypoxia so oxygen has been ordered and was delivered to her home. She will be discharged today with [facility] for followup. LABORATORY: WBCs 5.6 on admission, went down to 3.2 and today is 7.7. Hemoglobin 10.1, hematocrit 30.2, stable. D-dimer on admission was 589 and is now 483. Electrolytes are basically within normal limits with the exception her calcium is low at 8.3. Her C-reactive protein was 2, went up to 2.9 and is now 1.3. Urinalysis was unremarkable. Preliminary blood cultures show no growth after 48 hours. RADIOLOGY: Initial chest x-ray shows improved appearance of the lung bases with slight haziness persistent in the right lung base and left infrahilar region in a retrocardiac location. Her final chest x-ray showed improved resolving airspace disease in the lung bases. DISCHARGE PLAN: The patient will be discharged home in stable condition. She will have [facility]. She is to resume her previous diet and increase her activity as tolerated. She is to followup with Dr. Li within the next one to two weeks. In addition to her routine medications, she is also to have her albuterol and guaifenesin as well as cefdinir, dexamethasone and azithromycin. She is to return to the hospital or followup with Dr. Li for any problems or complications. DISCHARGE MEDICATIONS: 1. Meloxicam. 2. Potassium chloride. 3. Losartan. 4. Levothyroxine. 5. Furosemide. 6. Amlodipine. 7. Cefdinir. 8. Dexamethasone. 9. Guaifenesin. 10. Albuterol. 11. Azithromycin. [facility][id number] [facility]
== END 2020-01-18 17:35 | disposition home health service (06) ==
LOC: ER 10:38 → MS 13:01
PROVIDERS: ADMIT Nurse Practitioner; ATTEND Nurse Practitioner Acute Care
DX: U07.1 COVID-19 (principal); J12.89 Other viral pneumonia; E87.1 Hypo-osmolality and hyponatremia; R09.02 Hypoxemia; R00.1 Bradycardia, unspecified; I10 Essential (primary) hypertension; E03.9 Hypothyroidism, unspecified; E78.5 Hyperlipidemia, unspecified; M19.90 Unspecified osteoarthritis, unspecified site; I44.7 Left bundle-branch block, unspecified; Z79.1 Long term (current) use of non-steroidal anti-inflammatories (NSAID); Z79.890 Hormone replacement therapy; Z79.899 Other long term (current) drug therapy; Z87.891 Personal history of nicotine dependence
CPT/HCPCS: 96361 ×2; 96366 ×2; 96367; 96365; 96375; 96376 ×2; 96372; J0696 ×2; J7030 ×2; J7050 ×8; J1650; J1100 ×3; J0456 ×3; 85379 ×3; 80048; 82553; 80053 ×2; 36415 ×3; 85384; 82150; 81001; 80076; 86140 ×3; 85025 ×3; 82550 ×2; 87040 ×2; 82728; 83615 ×2; 83690; 83735 ×3; 85730; 85610; 84443; 84484; 83880; 83605; 71045 ×2; 94664; 94640 ×4; 94762 ×2; 99285; 93005; G0378